=== PATIENT | female | born 2000 | race Caucasian/White ===

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

== ENCOUNTER 2019-03-23 09:55 | Outpatient (CLI) | payer BC | END 2019-03-23 21:27 | disposition home or self-care (01) | LOC: SCT 09:55 | PROVIDERS: ATTEND Pediatrics | DX: J34.2 Deviated nasal septum (principal) | CPT/HCPCS: 70486-TC ==